=== PATIENT | male | born 1985 | race African-American/Black ===

== ENCOUNTER 2016-12-14 08:35 | Emergency (ER) | payer MEDICARE, MEDICAID ==
[2016-12-14] MEDS ORDERED: Fluorescein Sodium TOPICAL* 1 MG TEST OPHTHALMIC ONE (10:31)
[2016-12-14] MEDS ORDERED: BSS OPTH.SOL* BTL OPHTHALMIC ONE (10:31)
--- NOTE | 2016-12-14 10:32 | UC ---
Skin Complaint HPI - HPI Summary HPI Summary: rash on left side of forehead for 2 days--Patient with developmental disorder and has difficulty verbalizing - History of Current Complaint Chief Complaint: UCSkin Time Seen by Provider: 12/14/16 10:00 Stated Complaint: BUG BITE Hx Obtained From: Patient, Family/Powerhouse [employer] Hx From Patient Unobtainable Due To: Other - disabled Onset/Duration: Sudden Onset - 2, Still Present Onset Severity: Moderate Current Severity: Moderate Location: Discrete - left side of forehead Character: Pruritus, Redness, Raised Aggravating: Nothing Alleviating: Nothing Associated Signs & Symptoms: Positive: Rash - Allergy/Home Medications Allergies/Adverse Reactions: Allergies Allergy/AdvReac Type Severity Reaction Status Date / Time No Known Allergies Allergy Verified 12/14/16 09:01 Review of Systems Constitutional: Negative Skin: Rash - left forehead Eyes: Negative ENT: Negative Respiratory: Negative Cardiovascular: Negative Gastrointestinal: Negative Genitourinary: Negative Motor: Negative Neurovascular: Negative Musculoskeletal: Negative Neurological: Negative Psychological: Negative All Other Systems Reviewed And Are Negative: Yes PMH/Surg Hx/FS Hx/Imm Hx Previously Healthy: Yes Cardiovascular History: Hypertension GI/ History: Other - kidney disease-transplant Other GI/ History: kidney disease transplant Other History Of: Negative For: Anticoagulant Therapy - Surgical History Surgical History: Yes Surgery Procedure, Year, and Place: Renal failure. SEVERAL SURGERIES FOR FISTULAS- FOREARM, NECK AND BACK OF NECK. TEMPORARY CATH PLACED FOR DIALYSIS - Family History Known Family History: Positive: Hypertension - Social History Occupation: Disabled Lives: With Family Alcohol Use: None Substance Use Type: None Smoking Status (MU): Never Smoked Tobacco Physical Exam Triage Information Reviewed: Yes Appearance: Well-Appearing, No Pain Distress, Well-Nourished Vital Signs: Initial Vital Signs Temp 99.1 F 12/14/16 09:03 Pulse 81 12/14/16 09:03 Resp 16 12/14/16 09:03 Pulse Ox 98 12/14/16 09:03 Vital Signs Reviewed: Yes Eye Exam: Normal Eyes: Positive: Conjunctiva Clear, Other: - no evidence of shingles in eye, after staining ENT Exam: Normal ENT: Positive: Normal ENT inspection, Hearing grossly normal, Pharynx normal, TMs normal. Negative: Trismus, Muffled/hoarse voice Dental Exam: Normal Neck exam: Normal Neck: Positive: Supple, Nontender, No Lymphadenopathy Respiratory Exam: Normal Respiratory: Positive: Chest non-tender, Lungs clear, Normal breath sounds, No respiratory distress, No accessory muscle use Cardiovascular Exam: Normal Cardiovascular: Positive: RRR, No Murmur, Pulses Normal, Brisk Capillary Refill Musculoskeletal Exam: Normal Musculoskeletal: Positive: Strength Intact, ROM Intact, No Edema Neurological Exam: Normal Neurological: Positive: Alert, Muscle Tone Normal Psychological Exam: Normal Psychological: Positive: Normal Response To Family - to patient baseline Skin: Positive: rashes - left forehead Course/Dx - Course Course Of Treatment: acyclovir, follow with Dr. Marley immediatll after leaving urgent care, see pcp or Dr. pacheco in 2-3 days for creatinine re-check - Differential Diagnoses - Skin Complaint Differential Diagnoses: Cellulitis, Contact Dermatitis, Impetigo, Poison Nelly, Systemic Illness, Tick Born Illness, Varicella Zoster, Viral Exanthem - Diagnoses Provider Diagnoses: Varicella left forehead Discharge - Discharge Plan Condition: Stable Disposition: HOME Prescriptions: Acyclovir* [Zovirax TAB*] 800 mg PO 5ID #70 tab Patient Education Materials: Shingles (ED) Referrals: Fernanda Sharp MD [Primary Care Provider] - 2 Days Brian Pacheco MD [Medical Doctor] - Brian Marley MD [Medical Doctor] - 12/14/16 11:00 am
[2016-12-15 20:47] LABS: Varicella Zoster Result Positive (Negative)
== END 2016-12-14 11:16 | disposition home or self-care (01) ==
LOC: UCEAST 08:35
DX: B01.9 Varicella without complication (principal); F80.89 Other developmental disorders of speech and language; I10 Essential (primary) hypertension; Z94.0 Kidney transplant status; N28.9 Disorder of kidney and ureter, unspecified
CPT/HCPCS: 87529; 87798; 99212; A9270-GY; G0463